=== PATIENT | male | born 1955 | race Caucasian/White ===

== ENCOUNTER 2024-03-13 21:49 | Inpatient (IN) | payer MEDICARE, SELFPAY ==
[2024-03-13 22:02] VITALS: BP 116/73; BP 125/76; PULSE 100; PULSE 98; RESP 18; TEMP 36.7; O2SAT 95; BMI 24.6
--- NOTE | 2024-03-13 22:19 | PC.NURSE ---
addendum client has not taken meds for days, states he eats at least one thing a day. recent consistent use of etoh but seemingly not dependent. used to enjoy woodworking and now losing interest in joyful activities. drank etoh today reportedly last at 1530. denies hallucinations contracts for safety. reports si thought no intent or plan. turn car into oncoming traffic- i never would though too chicken
--- NOTE | 2024-03-13 22:22 | PC.NURSE ---
reports recent cigarette smoking im no t supposed to , declines NRT
--- NOTE | 2024-03-13 22:23 | ECG_ITS ---
Test Reason : HX AFIB Blood Pressure : / mmHG Vent. Rate : 093 BPM Atrial Rate : 093 BPM P-R Int : 210 ms QRS Dur : 094 ms QT Int : 376 ms P-R-T Axes : 090 031 045 degrees QTc Int : 467 ms Sinus rhythm with 1st degree A-V block with occasional Premature ventricular complexes Low voltage QRS Borderline ECG No previous ECGs available Referred By: Cari Vergara Electronically Signed By:Heath Arellano
[2024-03-13 22:44] LABS: Amphetamine Screen Urine Not Detected (Not Detect); Appearance Urine Clear; Barbiturates, Urine Not Detected (Not Detect); Benzodiazepines Screen Urine Not Detected (Not Detect); Buprenorphine Scr Not Detected (Not Detect); Cannabinoid Screen Urine Not Detected (Not Detect); Cocaine Screen Urine Not Detected (Not Detect); Color Urine Yellow; Fentanyl, urine Not Detected (Not Detect); Glucose Urine UA Negative (Negative); Leukocyte Esterase Urine Negative (Negative); Methadone Screen, Urine Not Detected (Not Detect); Nitrite Urine Negative (Negative); Opiate Screen Urine Not Detected (Not Detect); Oxycodone Screen Urine Not Detected (Not Detect); Phencyclidine Screen Urine Not Detected (Not Detect); Specific Gravity - Urine <= 1.005 (1.005-1.025); Urine Blood Negative (Negative); Urine Ketones Trace mg/dL (Negative); Urine Protein Negative (Neg-Trace)
[2024-03-13 22:49] LABS: Bacteria Urine None Seen (None Seen); Hyaline Casts Urine 0-2 /LPF (0-2); RBC Urine 0-2 /HPF (0-2); Squamous Epithelial Cell Urine 0-2 /HPF (0-2); WBC Urine 0-5 /HPF (0-5)
[2024-03-13 22:53] LABS: MANUAL DIFF FLAG NO
[2024-03-13 22:55] LABS: Basophils Absolute Auto 0.1 X10*3/uL (0.0-0.2); Basophils Percent Auto 0.7 % (0-2); Eosinophils Absolute Auto 0.3 X10*3/uL (0.0-0.4); Eosinophils Percent Auto 3.7 % (0-4); Hematocrit 37.9 % (42.0-52.0); Hemoglobin 13.1 g/dl (14.0-18.0); Imm Gran Abs Auto 0.02 X10*3/uL (0.00-0.03); Imm Gran Pct Auto 0.3 % (0.0-0.4); Lymphocytes Absolute Auto 2.3 X10*3/uL (1.2-4.9); Mean Corpuscular HGB Conc 34.6 g/dl (31.0-36.0); Mean Corpuscular Hemoglobin 34.9 pg (27.0-33.0); Mean Corpuscular Volume 101.1 fL (80.0-98.0); Mean Platelet Volume 8.5 fL (9.4-12.4); Monocytes Absolute Auto 0.7 X10*3/uL (0.1-1.2); Monocytes Percent Auto 10.8 % (2-11); Neutrophils Absolute Auto 3.4 x10*3/uL (2.0-8.3); Neutrophils Percent Auto 50.5 % (45-73); Platelet Count 134 X10*3/uL (160-400); Red Blood Count 3.75 X10*6/uL (4.60-5.80); Red Cell Distribution Width 13.2 % (11.0-16.0); White Blood Count 6.8 X10*3/uL (4.8-10.8)
[2024-03-13 23:11] LABS: Alanine Aminotransferase 28 U/L (0-40); Albumin Level 3.5 g/dL (3.5-5.0); Alkaline Phosphatase 83 U/L (39-117); Anion Gap 18 (12-20); Aspartate Amino Transferase 38 U/L (5-37); Bilirubin Total 0.5 mg/dL (0.0-1.0); Blood Urea Nitrogen 5 mg/dL (9-16); Calcium 8.8 mg/dL (8.4-10.2); Carbon Dioxide 20 mmol/L (22-29); Chloride 105 mmol/L (96-108); Creatinine Clr Calc Pharmacy 93.6; Estimated Glomerular Filt Rate > 60; Ethanol 99 mg/dL; Glucose Random 84 mg/dL (60-115); Sodium 139 mmol/L (135-145); Total Protein 6.4 g/dL (6.5-8.0)
--- NOTE | 2024-03-13 23:19 | ED.PSYCH ---
HPI - Psych General Chief Complaint: Psychiatric Symptoms Stated Complaint: Severe depression Time Seen by Provider: 03/13/24 22:22 Source: patient Mode of arrival: EMS History of Present Illness ED Provider: Dr. Vergara HPI Narrative: 68-year-old male with a history of atrial fibrillation and on chronic anticoagulation, depression, COPD who states that over the past week he has been having swings of anger and then being sad and tearful and states that he has never had these before and is unsure of why these have all the sudden started, he also endorses daily drinking of 3-4 alcoholic beverages. Patient states he has not supposed to be smoking but has been over the past 2 weeks and states that he has not taken any of his medication for the past 1 week. He denies any fever/chills/shortness of breath or chest pain and denies any recent blurred vision/double vision/speech issues or difficulty with walking or sensation. Related Data Home Medications ?Medication ?Instructions ?Recorded ?Confirmed albuterol sulfate 90 mcg/actuation 2 puff inhalation Q4H PRN wheezing 03/13/24 03/13/24 aerosol inhaler apixaban 5 mg tablet (Eliquis) 5 mg PO BID 03/13/24 03/13/24 atorvastatin 40 mg tablet 40 mg PO DAILY 03/13/24 03/13/24 cyanocobalamin (vitamin B-12) 1,000 mcg PO DAILY 03/13/24 03/13/24 1,000 mcg tablet folic acid 1 mg tablet 1 mg PO DAILY 03/13/24 03/13/24 losartan 25 mg tablet 12.5 mg PO DAILY 03/13/24 03/13/24 sertraline 100 mg tablet 100 mg PO DAILY 03/13/24 03/13/24 Allergies Allergy/AdvReac Type Severity Reaction Status Date / Time No Known Allergies Allergy Unverified 03/13/24 22:05 [No Known Allergies*] Review of Systems Review of Systems: Pertinent positives and negatives as stated in HPI PMFSH Past Medical History Source: nursing notes reviewed Social History Social History Advance Directives: No Advance Directives Information Provided: No Do you have a plan to hurt others: No Plan Physical Exam Vital Signs: Vital Signs: Last Vital Signs Temp 98.1 F 03/13/24 22:02 Pulse 100 03/13/24 22:02 Resp 18 03/13/24 22:02 BP 116/73 03/13/24 22:02 Pulse Ox 95 03/13/24 22:02 O2 Del Method Room Air 03/13/24 22:02 BMI result Body Mass Index 24.6 VITAL SIGNS: Reviewed. GENERAL: Well developed, well nourished, in no acute distress. HEAD: Normocephalic/atraumatic EYES: PERRLA, EOMI EARS: Ext canals without abnormality NOSE: Nares patent bilateral OROPHARYNX: no oral lesions noted, posterior pharynx clear NECK: Supple, no adenopathy LUNGS: Normal breath sounds. No adventitious sounds or accessory muscle use. SpO2<95> CARDIOVASCULAR: Regular rate and rhythm without noted murmurs ABDOMEN: Soft, non-tender, non-distended with bowel sounds. MUSCULOSKELETAL: No tenderness, deformities, or effusions noted on gross inspection. EXTREMITIES: No cyanosis, clubbing or edema. SKIN: Inspection of the skin reveals no rashes NEUROLOGIC: Alert and oriented x 4. Strength and sensation to light touch were grossly intact x 4, cranial nerves 2-12 are grossly intact. Medical Decision Making Medical Decision Making MDM Narrative: 68-year-old male with history and clinical presentation, DDX: Acute exacerbation of underlying chronic depression, also use alcohol, denies any recent anniversaries of losses or stressors in life. I reviewed all investigations and hematologic indices negative for leukocytosis and patient has a macrocytic anemia without any history or clinical findings to suggest acute bleeding and likely secondary to anemia of chronic disease, patient also demonstrates with a thrombocytopenia that is likely secondary to chronic use of alcohol. Chemistry indices are negative for JOSE ALFREDO or electrolyte/liver enzyme derangements. Urinalysis is negative for UTI or hematuria. UDS is negative and ETOH-99 consistent with patient's endorsement of alcohol use this evening. Patient is otherwise medically cleared for further evaluation by the crisis team. Patient placed in physician observation because the patient needed more time for crisis evaluation. At the time observation was started the patient's vital signs were stable, patient is alert and oriented, neuro: Nonfocal, CV RRR, lungs clear Differential Diagnosis Differential Diagnoses: The differential diagnosis associated with the presentation includes Please see the discussion above Admission/Observation Consideration of admission/observation: Escalation of care including admission/observation considered Please see the discussion above Consult Healthcare Provider Management of the patient was discussed with: Biazzi Nitrator Operator Please see the discussion above Lab Data MDM Lab Attestation statement: I reviewed the patient's lab results. Please see the discussion above 03/13/24 22:50 03/13/24 22:50 Labs: Lab Results 03/13/24 03/13/24 Range/Units 22:50 Unknown WBC 6.8 (4.8-10.8) X10*3/uL RBC 3.75 L (4.60-5.80) X10*6/uL Hgb 13.1 L (14.0-18.0) g/dl Hct 37.9 L (42.0-52.0) % MCV 101.1 H (80.0-98.0) fL MCH 34.9 H (27.0-33.0) pg MCHC 34.6 (31.0-36.0) g/dl RDW 13.2 (11.0-16.0) % Plt Count 134 L (160-400) X10*3/uL MPV 8.5 L (9.4-12.4) fL Immature Gran % (Auto) 0.3 (0.0-0.4) % Neut % (Auto) 50.5 (45-73) % Lymph % (Auto) 34.0 (20-40) % [place] % (Auto) 10.8 (2-11) % Eos % (Auto) 3.7 (0-4) % Baso % (Auto) 0.7 (0-2) % Lymph # (Auto) 2.3 (1.2-4.9) X10*3/uL [place] # (Auto) 0.7 (0.1-1.2) X10*3/uL Eos # (Auto) 0.3 (0.0-0.4) X10*3/uL Baso # (Auto) 0.1 (0.0-0.2) X10*3/uL Abs Immat Gran (auto) 0.02 (0.00-0.03) X10*3/uL Absolute Neuts (auto) 3.4 (2.0-8.3) x10*3/uL Absolute Nucleated RBC 0.000 (0.0-0.012) X10*3/uL Nucleated RBC % (auto) 0.0 (0.0-0.2) /100WBC Sodium 139 (135-145) mmol/L Potassium 4.0 (3.3-5.1) mmol/L Chloride 105 (96-108) mmol/L Carbon Dioxide 20 L (22-29) mmol/L Anion Gap 18 (12-20) BUN 5 L (9-16) mg/dL Creatinine 0.72 (0.5-1.4) mg/dL Estim Creat Clear Calc 93.6 Estimated GFR > 60 Random Glucose 84 (60-115) mg/dL Calcium 8.8 (8.4-10.2) mg/dL Total Bilirubin 0.5 (0.0-1.0) mg/dL AST 38 H (5-37) U/L ALT 28 (0-40) U/L Alkaline Phosphatase 83 (39-117) U/L Total Protein 6.4 L (6.5-8.0) g/dL Albumin 3.5 (3.5-5.0) g/dL Urine Color Yellow Urine Appearance Clear Urine pH 6.0 (5.0-9.0) Ur Specific [place] <= 1.005 (1.005-1.025) Urine Protein Negative (Neg-Trace) mg/dL Urine Glucose (UA) Negative (Negative) mg/dL Urine Ketones Trace (Negative) mg/dL Urine Blood Negative (Negative) Urine Nitrite Negative (Negative) Ur Leukocyte Esterase Negative (Negative) Urine RBC 0-2 (0-2) /HPF Urine WBC 0-5 (0-5) /HPF Ur Squamous Epith Cells 0-2 (0-2) /HPF Urine Bacteria None Seen (None Seen) Hyaline Casts 0-2 (0-2) /LPF Urine Opiates Screen Not Detected (Not Detect) Ur Buprenorphine Scrn Not Detected (Not Detect) ng/mL Ur Oxycodone Screen Not Detected (Not Detect) ng/mL Urine Methadone Screen Not Detected (Not Detect) ng/mL Urine Fentanyl Screen Not Detected (Not Detect) Ur Barbiturates Screen Not Detected (Not Detect) Ur Phencyclidine Scrn Not Detected (Not Detect) Ur Amphetamines Screen Not Detected (Not Detect) U Benzodiazepines Scrn Not Detected (Not Detect) Urine Cocaine Screen Not Detected (Not Detect) U Marijuana (THC) Screen Not Detected (Not Detect) Ethyl Alcohol 99 mg/dL Independent Interpretation I performed an independent interpretation of an: EKG Interpretation: Sinus rhythm, first-degree AV block, HR-93, no STEMI, MN-to 10, QRS and QTC are within normal limits. Chronic Conditions COPD, AFib, chronic anticoagulation. Critical Care Time Critical Care Time Critical Care Time: Yes Total Critical Care Time: 45 Attestation: I personally attest to this time spent taking care of the patient. Discharge Plan Discharge Clinical Impression: Severe depression Patient Disposition: Still a Patient Prescriptions: No Action atorvastatin 40 mg tablet 40 mg PO DAILY sertraline 100 mg tablet 100 mg PO DAILY cyanocobalamin (vitamin B-12) 1,000 mcg tablet 1,000 mcg PO DAILY losartan 25 mg tablet 12.5 mg PO DAILY folic acid 1 mg tablet 1 mg PO DAILY albuterol sulfate 90 mcg/actuation HFA aerosol inhaler 2 puff inhalation Q4H PRN (Reason: wheezing) Eliquis 5 mg tablet 5 mg PO BID Print Language: Amharic
[2024-03-13] MEDS: hydrOXYzine HCL 25 MG TABLET PO (23:38)
[2024-03-13] MEDS: Apixaban 5 MG TABLET PO (23:38)
[2024-03-13 23:42] LABS: INTERNATIONAL NORM RATIO 0.8 (0.9-1.1); Prothrombin Time 10.3 SEC (11.1-13.3)
[2024-03-14] VITALS: BP 107/66; PULSE 83; RESP 17; TEMP 36.4; O2SAT 90
--- NOTE | 2024-03-14 06:56 | PC.NURSE ---
Assumed care of patient at 0645. Patient is observed resting in his bed. No signs of distress, breathing is even and unlabored. Will continue plan of care.
[2024-03-14 07:58] VITALS: BP 151/91; PULSE 107; RESP 16; TEMP 36.7; O2SAT 91
[2024-03-14] MEDS: Atorvastatin Calcium 40 MG TABLET PO (08:23)
[2024-03-14] MEDS: Sertraline HCL 100 MG TABLET PO (08:23)
[2024-03-14] MEDS: Apixaban 5 MG TABLET PO ×2 (08:23→20:36)
[2024-03-14] MEDS: Folic Acid 1 MG TABLET PO (08:23)
[2024-03-14] MEDS: Losartan Potassium 25 MG TABLET 12.5 MG PO (08:24)
[2024-03-14] MEDS: Cyanocobalamin (Vitamin B-12) 1,000 MCG TABLET 1000 MCG PO (08:24)
[2024-03-14] MEDS: Albuterol Sulfate 90 MCG 8 GM INHALER 2 PUFF INHALE (11:13)
[2024-03-14 11:30] VITALS: BP 105/65; PULSE 100; RESP 20; TEMP 37.1; O2SAT 91
--- NOTE | 2024-03-14 13:54 | PC.ADMIT ---
Shayan Calvillo, a 68 y/o male, was admitted to at 1130 from [facility] on a CV for treatment of unspecified depression and alcohol use disorder. The patient reportedly presented at [facility] yesterday, 03/13/24, after feeling increasingly depressed and having passive suicidal ideation. The patient is alert and oriented x 4. Upon admission he was pleasant and engaging and made good eye contact. Pt was able to recall events precipitating admission and vocalize his mental status. Per patient, he has been experiencing increased depression and anxiety due to being retired and feeling bored and hopeless. ?Some days I?m just angry and others I can?t stop crying.? The patient also stated that his previous marriage, which ended in 2002, continues to wear on him and cause ongoing sadness. ?Wednesday was one of my crying days and I turned to my brother and said I need to go to the hospital.? Patient was previously evaluated by [facility] crisis and his outpatient provider in recent days for reports of depression as well. Pt thought process was linear and organized. He denied perceptual disturbances, as well as current SI/HI. ?I?d never actually kill myself but I feel like giving up a lot.? Pt reported drinking three 20oz beers per day, but denied a history of alcohol withdrawal. CIWA Q4 is currently in place. CIWA score at admission was a 2 and patient denied s/sx of active withdrawal. Pt is a former everyday smoker who quit several years ago, but he still has a ?few cigarettes per week.? Pt denied the use of other substances. Physically, patient reported that he has experienced weight loss in the last several months in excess of 20lbs. He attributed this to not eating well and feelings of nausea, which he reportedly gets frequently. The patient also has a history of A-fib, emphysema, and high cholesterol. He does not use supplemental oxygen, but reports his Sa02 drops with exertion and usually reads in the low 90?s. During skin check, patient was observed to have bruising/discoloration to his arms bilaterally. ?If i look at a wall I bruise.? No open sores or wounds reported or observed. Pt ambulates independently but has a reported history of falls with his last fall occurring in September,, per patient report. However, patient gait is steady at this time and he ambulates without an assistive device. Pt placed on 15 minute checks for safety.?
[2024-03-14 13:58] VITALS: BMI 23.4
[2024-03-14 20:00] VITALS: BP 117/62; PULSE 94; RESP 16; TEMP 36.6; O2SAT 94
[2024-03-14] MEDS: hydrOXYzine HCL 25 MG TABLET PO (20:36)
[2024-03-14] MEDS: traZODone HCL 50 MG TABLET PO (21:01)
[2024-03-15 08:44] LABS: Estimated Average Glucose 100 mg/dL; Hemoglobin A1c % 5.1 % (<6.0)
[2024-03-15 08:50] LABS: Alanine Aminotransferase 22 U/L (0-40); Albumin Level 2.9 g/dL (3.5-5.0); Alkaline Phosphatase 70 U/L (39-117); Anion Gap 13 (12-20); Aspartate Amino Transferase 28 U/L (5-37); Bilirubin Total 0.5 mg/dL (0.0-1.0); Blood Urea Nitrogen 7 mg/dL (9-16); Calcium 8.6 mg/dL (8.4-10.2); Carbon Dioxide 25 mmol/L (22-29); Chloride 106 mmol/L (96-108); Cholesterol 115 mg/dL (<200); Creatinine Clr Calc Pharmacy 88.7; Estimated Glomerular Filt Rate > 60; Glucose Fasting 98 mg/dL (60-99); HDL Cholesterol 69 mg/dL (>40); LDL Cholesterol Calculated 35 mg/dL (<100); Magnesium 1.8 mg/dL (1.6-2.6); Potassium 3.6 mmol/L (3.3-5.1); Sodium 140 mmol/L (135-145); Total Protein 5.4 g/dL (6.5-8.0); Triglycerides 56 mg/dL (<150)
[2024-03-15 08:58] VITALS: BP 103/64; PULSE 97; RESP 20; TEMP 36.6; O2SAT 91
[2024-03-15] MEDS: Cyanocobalamin (Vitamin B-12) 1,000 MCG TABLET 1000 MCG PO (09:02)
[2024-03-15] MEDS: Folic Acid 1 MG TABLET PO (09:02)
[2024-03-15] MEDS: Sertraline HCL 100 MG TABLET PO (09:02)
[2024-03-15] MEDS: Losartan Potassium 25 MG TABLET 12.5 MG PO (09:02)
[2024-03-15] MEDS: Apixaban 5 MG TABLET PO ×2 (09:02→20:56)
[2024-03-15] MEDS: Atorvastatin Calcium 40 MG TABLET PO (09:03)
[2024-03-15 09:08] LABS: Free T4 (Free Thyroxine) 0.91 ng/dL (0.71-1.85); Thyroid Stimulating Hormone 2.12 uIU/mL (0.32-4.0)
[2024-03-15 09:14] LABS: Folate 10.1 ng/mL (> or = 4.0); Vitamin B12 817 pg/mL (200-900)
[2024-03-15] MEDS: Albuterol Sulfate 90 MCG 8 GM INHALER 2 PUFF INHALE (09:45)
--- NOTE | 2024-03-15 11:51 | MHC.CLN ---
NUTRITION CONSULT FOR PATIENT REPORTS 20# WEIGHT LOSS X SEVERAL MONTHS. NO PRIOR WEIGHTS VIEWED. REVIEW OF EMR SHOWS PATIENT ATTRIBUTES WEIGHT LOSS TO NOT EATING WELL AND NAUSEA. DEPRESSION AND ETOH USE LIKELY CONTRIBUTORS TO DECREASED APPETITE. ADDING ENSURE BID TO PROMOTE NUTRITIONAL INTAKE. PROVIDES 700 KCALS, 40 G PROTEIN. ENCOURAGE PO INTAKE AT MEALS AND SNACKS ON UNIT.
--- NOTE | 2024-03-15 13:07 | PM.EVENT ---
Event Note Date of Service: 03/15/24 Event Note: 68 year old male with pertinent history of gout and alcohol use disorder admitted to adult psychiatry with consult placed to hospitalist service for evaluation of possible gout. The patient reports started with a dull pain along the medial aspect of the rihgt foot at the base of the 1st metatarsal yesterday. Since then it has become swollen, red, and hot with worsening pain. he stated this location and symptoms are consistent with prior episodes of gout. We did check uric acid level which is normal at 4.2. However on exam there is a localized area of swelling, warmth, and erythema over the above mentioned area, clinically appearing consistent with gout. He is afebrile and there is no leukocytosis to suggest infection. Reports historically has taken prednisone for gout with good effect. Given patient's known history of gout and history of heavy alcohol consumption serving as a significant risk factor, will treat the patient for acute gout flare with prednisone taper as ordered. Thank you for allowing me to participate in this consult. Signing off at this time. Please do not hesitate to call for further questions or for any acute medical issues. Time Spent With Patient Time: Total time managing care of this patient today ____ minutes.
[2024-03-15 13:52] LABS: MANUAL DIFF FLAG NO
--- NOTE | 2024-03-15 13:52 | MHC.RECOVRN ---
AUDIT-C Brief Intervention Pt had positive screen for unhealthy alcohol use on admission. Pt declined to meet with [facility] to discuss alcohol use and resources.
[2024-03-15 13:54] LABS: Basophils Percent Auto 0.5 % (0-2); Eosinophils Absolute Auto 0.2 X10*3/uL (0.0-0.4); Eosinophils Percent Auto 2.1 % (0-4); Hematocrit 40.5 % (42.0-52.0); Hemoglobin 13.6 g/dl (14.0-18.0); Imm Gran Abs Auto 0.02 X10*3/uL (0.00-0.03); Imm Gran Pct Auto 0.2 % (0.0-0.4); Lymphocytes Absolute Auto 1.7 X10*3/uL (1.2-4.9); Lymphocytes Percent Auto 21.3 % (20-40); Mean Corpuscular HGB Conc 33.6 g/dl (31.0-36.0); Mean Corpuscular Hemoglobin 34.2 pg (27.0-33.0); Mean Corpuscular Volume 101.8 fL (80.0-98.0); Mean Platelet Volume 8.8 fL (9.4-12.4); Monocytes Percent Auto 12.3 % (2-11); Neutrophils Absolute Auto 5.1 x10*3/uL (2.0-8.3); Neutrophils Percent Auto 63.6 % (45-73); Platelet Count 140 X10*3/uL (160-400); Red Blood Count 3.98 X10*6/uL (4.60-5.80); Red Cell Distribution Width 13.2 % (11.0-16.0)
[2024-03-15 14:07] LABS: Uric Acid 4.2 mg/dL (3.4-7.0)
--- NOTE | 2024-03-15 14:36 | P.HPPS_ITS ---
HPI Date of Service: 03/15/24 Chief Complaint: Severe depression HPI Narrative: per [facility] crisis eval, pt called emergency number and police brought pt to [facility] offices. per [facility] eval, pt c/o depression with SI, but said, i could never do it. he was weepy and indicated he needed help but was unable to elucidate exactly what kind. he identified several psychosocial stressors: detention, or not knowing what to do with himself anymore; worsening health conditions; continuing to be preoccupied with his divorce of 20 years ago. he reported alcohol abuse as a current coping strategy, drinking 75 oz of beer between 3-6 and then going to sleep. he reportedly has not taken his medications for the past week as well. on interview with MD, pt is calm and cooperative. he denies any ROWE, sweats, tremors, n/v/d. he does report anxiety. per [employer]oc aadc operations staff officer, scored 1 and 0 overnight on CIWA. complete history is taken, next steps discussed. pt looking for anti- depressant augmentation - he has been taking sertaline 100 mg daily for quite some time. R/B of wellbutrin discussed, including Sz, and pt agrees to trial. will start 150 mg daily as of tomorrow. discussion held re MAT for AUD, pt declines any such approach, saying he tried it long ago and all it did was remind him that he wasn't drinking and made him crave even more. also c/o right ankle pain, reporting h/o gout, saying the present pain seems to be the same. MD agreed to hospitalist consult for presumed gout. pt is interested in getting back into mental health treatment and is eager for referrals for therapy and psychiatry. 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 2 adult sons, one from whom he is estranged. of 29 years him in the early 1999s. close with his brother, with whom he lives. Substance History: tobacco - denies use aside from lapse the past couple of weeks. alcohol - daily 72 oz beer until day of admission. h/o detox and rehab. cannabis - denies denies the use of other drugs or recreational substances. Trauma History: denies Diagnostics Vital Signs (24Hr): Vital Signs - 24 hr 03/14/24 20:00 03/15/24 08:58 Temperature 97.9 F 97.9 F Pulse Rate 94 97 Respiratory Rate 16 20 Blood Pressure 117/62 103/64 Pulse Oximetry 94 91 L Oxygen Delivery Method Room Air Room Air BMI result Body Mass Index 23.4 Labs 03/15/24 13:44 03/15/24 08:01 Labs: Laboratory Results - last 48 hr 03/13/24 03/13/24 03/13/24 22:50 23:26 Unknown WBC 6.8 RBC 3.75 L Hgb 13.1 L Hct 37.9 L MCV 101.1 H MCH 34.9 H MCHC 34.6 RDW 13.2 Plt Count 134 L MPV 8.5 L Immature Gran % (Auto) 0.3 Neut % (Auto) 50.5 Lymph % (Auto) 34.0 [place] % (Auto) 10.8 Eos % (Auto) 3.7 Baso % (Auto) 0.7 Lymph # (Auto) 2.3 [place] # (Auto) 0.7 Eos # (Auto) 0.3 Baso # (Auto) 0.1 Abs Immat Gran (auto) 0.02 Absolute Neuts (auto) 3.4 Absolute Nucleated RBC 0.000 Nucleated RBC % (auto) 0.0 PT 10.3 L INR 0.8 L Sodium 139 Potassium 4.0 Chloride 105 Carbon Dioxide 20 L Anion Gap 18 BUN 5 L Creatinine 0.72 Estim Creat Clear Calc 93.6 Estimated GFR > 60 Random Glucose 84 Fasting Glucose Estimat Average Glucose Hemoglobin A1c % Uric Acid Calcium 8.8 Magnesium Total Bilirubin 0.5 AST 38 H ALT 28 Alkaline Phosphatase 83 Total Protein 6.4 L Albumin 3.5 Triglycerides Cholesterol LDL Cholesterol, Calc HDL Cholesterol Vitamin B12 Folate TSH Free T4 Urine Color Yellow Urine Appearance Clear Urine pH 6.0 Ur Specific [place] <= 1.005 Urine Protein Negative Urine Glucose (UA) Negative Urine Ketones Trace Urine Blood Negative Urine Nitrite Negative Ur Leukocyte Esterase Negative Urine RBC 0-2 Urine WBC 0-5 Ur Squamous Epith Cells 0-2 Urine Bacteria None Seen Hyaline Casts 0-2 Urine Opiates Screen Not Detected Ur Buprenorphine Scrn Not Detected Ur Oxycodone Screen Not Detected Urine Methadone Screen Not Detected Urine Fentanyl Screen Not Detected Ur Barbiturates Screen Not Detected Ur Phencyclidine Scrn Not Detected Ur Amphetamines Screen Not Detected U Benzodiazepines Scrn Not Detected Urine Cocaine Screen Not Detected U Marijuana (THC) Screen Not Detected Ethyl Alcohol 99 03/15/24 03/15/24 08:01 13:44 WBC 8.0 RBC 3.98 L Hgb 13.6 L Hct 40.5 L MCV 101.8 H MCH 34.2 H MCHC 33.6 RDW 13.2 Plt Count 140 L MPV 8.8 L Immature Gran % (Auto) 0.2 Neut % (Auto) 63.6 Lymph % (Auto) 21.3 [place] % (Auto) 12.3 H Eos % (Auto) 2.1 Baso % (Auto) 0.5 Lymph # (Auto) 1.7 [place] # (Auto) 1.0 Eos # (Auto) 0.2 Baso # (Auto) 0.0 Abs Immat Gran (auto) 0.02 Absolute Neuts (auto) 5.1 Absolute Nucleated RBC 0.000 Nucleated RBC % (auto) 0.0 PT INR Sodium 140 Potassium 3.6 Chloride 106 Carbon Dioxide 25 Anion Gap 13 BUN 7 L Creatinine 0.76 Estim Creat Clear Calc 88.7 Estimated GFR > 60 Random Glucose Fasting Glucose 98 Estimat Average Glucose 100 Hemoglobin A1c % 5.1 Uric Acid 4.2 Calcium 8.6 Magnesium 1.8 Total Bilirubin 0.5 AST 28 ALT 22 Alkaline Phosphatase 70 Total Protein 5.4 L Albumin 2.9 L Triglycerides 56 Cholesterol 115 LDL Cholesterol, Calc 35 HDL Cholesterol 69 Vitamin B12 817 Folate 10.1 TSH 2.12 Free T4 0.91 Urine Color Urine Appearance Urine pH Ur Specific [place] Urine Protein Urine Glucose (UA) Urine Ketones Urine Blood Urine Nitrite Ur Leukocyte Esterase Urine RBC Urine WBC Ur Squamous Epith Cells Urine Bacteria Hyaline Casts Urine Opiates Screen Ur Buprenorphine Scrn Ur Oxycodone Screen Urine Methadone Screen Urine Fentanyl Screen Ur Barbiturates Screen Ur Phencyclidine Scrn Ur Amphetamines Screen U Benzodiazepines Scrn Urine Cocaine Screen U Marijuana (THC) Screen Ethyl Alcohol Meds/Allergies Meds Home Medications ?Medication ?Instructions ?Recorded ?Confirmed ?Type albuterol sulfate 90 mcg/actuation 2 puff inhalation Q4H PRN wheezing 03/13/24 03/13/24 History aerosol inhaler apixaban 5 mg tablet (Eliquis) 5 mg PO BID 03/13/24 03/13/24 History atorvastatin 40 mg tablet 40 mg PO DAILY 03/13/24 03/13/24 History cyanocobalamin (vitamin B-12) 1,000 mcg PO DAILY 03/13/24 03/13/24 History 1,000 mcg tablet folic acid 1 mg tablet 1 mg PO DAILY 03/13/24 03/13/24 History losartan 25 mg tablet 12.5 mg PO DAILY 03/13/24 03/13/24 History sertraline 100 mg tablet 100 mg PO DAILY 03/13/24 03/13/24 History Allergies Allergies Allergy/AdvReac Type Severity Reaction Status Date / Time No Known Allergies Allergy Unverified 03/13/24 22:05 [No Known Allergies*] Mental Status Exam Mental Status Exam Narrative: dressed in rich, adequately groomed. cooperative, no PMA/PMR. speech nml rate, amount, loudness, latency. flattened tone. thoughts linear and logical. affect constricted, normo-intense, non-labile. mood good. denies SI/SIBI/HI/AVH. Assessment & Plan Assessment & Plan (1) Severe depression: Status: Acute Code(s): F32.2 - Major depressive disorder, single episode, severe without psychotic features (2) Alcohol use disorder: Status: Acute Code(s): F10.90 - Alcohol use, unspecified, uncomplicated Plan add wellbutrin 150 mg daily to sertraline 100 mg daily for depression. continue CIWA with ativan per protocol for alcohol withdrawal. declines MAT for AUD. medical consult for reported gout flare. Patient educated on: medication risk/benefits and substance abuse Reason for continued inpatient stay Substantial Risk for: inability to function and rapid decompensation Statement Statement: I have reviewed the history and physical and performed a pertinent examination on my patient. No changes have occurred unless specified. If the History and Physical was not performed prior to admission, the Hospitalist's service will be consulted for completing the admission physical. Time Spent With Patient Time: Total time managing care of this patient today __55__ minutes.
[2024-03-15] MEDS: predniSONE 20 MG TABLET 30 MG PO (15:30)
[2024-03-15 20:15] VITALS: BP 107/76; PULSE 94; RESP 16; TEMP 36.9; O2SAT 96
[2024-03-15] MEDS: hydrOXYzine HCL 25 MG TABLET PO (20:55)
[2024-03-15] MEDS: traZODone HCL 50 MG TABLET PO (20:56)
[2024-03-16 08:06] VITALS: BP 93/62; PULSE 81; RESP 20; TEMP 36.6; O2SAT 94
[2024-03-16] MEDS: Apixaban 5 MG TABLET PO ×2 (08:21→20:43)
[2024-03-16] MEDS: predniSONE 20 MG TABLET 30 MG PO (08:21)
[2024-03-16] MEDS: Atorvastatin Calcium 40 MG TABLET PO (08:21)
[2024-03-16] MEDS: Sertraline HCL 100 MG TABLET PO (08:21)
[2024-03-16 08:22] VITALS: BP 93/63
[2024-03-16] MEDS: Losartan Potassium 25 MG TABLET 12.5 MG PO (08:22)
[2024-03-16] MEDS: buPROPion HCl XL 150 MG TAB.ER.24H PO (08:22)
[2024-03-16] MEDS: Cyanocobalamin (Vitamin B-12) 1,000 MCG TABLET 1000 MCG PO (08:22)
[2024-03-16] MEDS: Folic Acid 1 MG TABLET PO (08:23)
--- NOTE | 2024-03-16 13:33 | P.PNPSI_ITS ---
Subjective Subjective Date of Service: 03/16/24 Reason For Visit: Severe depression Interim History: calm, cooperative. reports ankle pain has resolved, can now walk normally. per staff, not scoring on CIWA. seen by medicine for gout. dep/anx improved. no SI. slept about 8 hours. Mental Status Exam Mental Status Exam Narrative: dressed in rich, adequately groomed. cooperative, no PMA/PMR. speech nml rate, amount, loudness, latency. flattened tone. thoughts linear and logical. affect constricted, normo-intense, non-labile. mood good. denies SI/SIBI/HI/AVH. Diagnostics Vital Signs (24Hr): Vital Signs - 24 hr 03/15/24 20:15 03/16/24 08:06 03/16/24 08:22 Temperature 98.4 F 97.9 F Pulse Rate 94 81 Respiratory Rate 16 20 Blood Pressure 107/76 93/62 93/63 Pulse Oximetry 96 94 Oxygen Delivery Method Room Air Room Air BMI result Body Mass Index 23.4 Labs 03/15/24 13:44 03/15/24 08:01 Labs: Laboratory Results - last 48 hr 03/15/24 03/15/24 08:01 13:44 WBC 8.0 RBC 3.98 L Hgb 13.6 L Hct 40.5 L MCV 101.8 H MCH 34.2 H MCHC 33.6 RDW 13.2 Plt Count 140 L MPV 8.8 L Immature Gran % (Auto) 0.2 Neut % (Auto) 63.6 Lymph % (Auto) 21.3 [place] % (Auto) 12.3 H Eos % (Auto) 2.1 Baso % (Auto) 0.5 Lymph # (Auto) 1.7 [place] # (Auto) 1.0 Eos # (Auto) 0.2 Baso # (Auto) 0.0 Abs Immat Gran (auto) 0.02 Absolute Neuts (auto) 5.1 Absolute Nucleated RBC 0.000 Nucleated RBC % (auto) 0.0 Sodium 140 Potassium 3.6 Chloride 106 Carbon Dioxide 25 Anion Gap 13 BUN 7 L Creatinine 0.76 Estim Creat Clear Calc 88.7 Estimated GFR > 60 Fasting Glucose 98 Estimat Average Glucose 100 Hemoglobin A1c % 5.1 Uric Acid 4.2 Calcium 8.6 Magnesium 1.8 Total Bilirubin 0.5 AST 28 ALT 22 Alkaline Phosphatase 70 Total Protein 5.4 L Albumin 2.9 L Triglycerides 56 Cholesterol 115 LDL Cholesterol, Calc 35 HDL Cholesterol 69 Vitamin B12 817 Folate 10.1 TSH 2.12 Free T4 0.91 Medications Medications Current Medications Acetaminophen (Acetaminophen 325 Mg Tablet) 650 mg PO Q6H PRN PRN Reason: Headache/Pain Mild Scale (1-3) Al Hydroxide/Mg Hydroxide (Magnesium Hydrox/Alum Hydrox 30 Ml Oral.Susp) 30 ml PO Q6H PRN PRN Reason: Heartburn/Nausea Albuterol Sulfate (Albuterol Sulfate 90 Mcg 8 Gm Inhaler) 2 puff INHALE Q4H PRN PRN Reason: wheezing Last Admin: 03/15/24 09:45 Dose: 2 puff Apixaban (Apixaban 5 Mg Tablet) 5 mg PO BID [facility] Last Admin: 03/16/24 08:21 Dose: 5 mg Atorvastatin Calcium (Atorvastatin Calcium 40 Mg Tablet) 40 mg PO DAILY [facility] Last Admin: 03/16/24 08:21 Dose: 40 mg Bupropion HCl (Bupropion Hcl Xl 150 Mg Tab.Er.24h) 150 mg PO DAILY [facility] Last Admin: 03/16/24 08:22 Dose: 150 mg Cyanocobalamin (Cyanocobalamin (Vitamin B-12) 1,000 Mcg Tablet) 1,000 mcg PO DAILY [facility] Last Admin: 03/16/24 08:22 Dose: 1,000 mcg Folic Acid (Folic Acid 1 Mg Tablet) 1 mg PO DAILY [facility] Last Admin: 03/16/24 08:23 Dose: 1 mg Hydroxyzine HCl (Hydroxyzine Hcl 25 Mg Tablet) 25 mg PO Q6H PRN PRN Reason: Anxiety Last Admin: 03/15/24 20:55 Dose: 25 mg Losartan Potassium (Losartan Potassium 25 Mg Tablet) 12.5 mg PO DAILY [facility]; Protocol Last Admin: 03/16/24 08:22 Dose: 12.5 mg Magnesium Hydroxide (Milk Of Magnesia 30 Ml Oral.Susp) 30 ml PO DAILY PRN PRN Reason: Constipation Prednisone (Prednisone 20 Mg Tablet) 40 mg PO DAILY [facility]; Taper Stop: 03/26/24 14:29 Last Admin: 03/16/24 08:21 Dose: 40 mg Sertraline HCl (Sertraline Hcl 100 Mg Tablet) 100 mg PO DAILY [facility] Last Admin: 03/16/24 08:21 Dose: 100 mg Trazodone HCl (Trazodone Hcl 50 Mg Tablet) 50 mg PO BEDTIME MRX1 PRN PRN Reason: Insomnia Last Admin: 03/15/24 20:56 Dose: 50 mg Allergies Allergies Allergy/AdvReac Type Severity Reaction Status Date / Time No Known Allergies Allergy Unverified 03/13/24 22:05 [No Known Allergies*] Assessment & Plan Assessment & Plan (1) Severe depression: Status: Acute Code(s): F32.2 - Major depressive disorder, single episode, severe without psychotic features (2) Alcohol use disorder: Status: Acute Code(s): F10.90 - Alcohol use, unspecified, uncomplicated Plan 03/15: add wellbutrin 150 mg daily to sertraline 100 mg daily for depression. continue CIWA with ativan per protocol for alcohol withdrawal. declines MAT for AUD. medical consult for reported gout flare. 03/16: DC CIWA and ativan as pt has yet to score for any and has been dry for at least 3 days. gout under control with prednisone. increase wellbutrin to 300 in 2 days. otherwise continue current mgmt. Reason for continued inpatient stay Substantial Risk for: inability to function and rapid decompensation Time Spent With Patient Time: Total time managing care of this patient today __25__ minutes.
[2024-03-16 20:00] VITALS: BP 101/60; PULSE 100; RESP 18; TEMP 36.6; O2SAT 97
[2024-03-16] MEDS: hydrOXYzine HCL 25 MG TABLET PO (20:42)
[2024-03-16] MEDS: traZODone HCL 50 MG TABLET PO (20:43)
[2024-03-16] MEDS: Albuterol Sulfate 90 MCG 8 GM INHALER 2 PUFF INHALE (20:48)
[2024-03-17 07:51] VITALS: BP 101/64; PULSE 81; RESP 18; TEMP 36.4; O2SAT 91
[2024-03-17] MEDS: Apixaban 5 MG TABLET PO ×2 (08:12→20:28)
[2024-03-17 08:13] VITALS: BP 101/64
[2024-03-17] MEDS: Losartan Potassium 25 MG TABLET 12.5 MG PO (08:13)
[2024-03-17] MEDS: Sertraline HCL 100 MG TABLET PO (08:13)
[2024-03-17] MEDS: predniSONE 20 MG TABLET 30 MG PO (08:14)
[2024-03-17] MEDS: Atorvastatin Calcium 40 MG TABLET PO (08:15)
[2024-03-17] MEDS: Folic Acid 1 MG TABLET PO (08:15)
[2024-03-17] MEDS: buPROPion HCl XL 150 MG TAB.ER.24H PO (08:15)
[2024-03-17] MEDS: Cyanocobalamin (Vitamin B-12) 1,000 MCG TABLET 1000 MCG PO (08:15)
[2024-03-17] MEDS: Albuterol Sulfate 90 MCG 8 GM INHALER 2 PUFF INHALE (09:53)
--- NOTE | 2024-03-17 13:20 | HO.PSYCHPN ---
Subjective Subjective Date of Service: 03/17/24 Reason For Visit: Severe depression Interim History: calm, cooperative, feeling well. would like to discharge next wednesday. walking better yesterday, feels his COPD is improved. c/o left arm and leg [id number] last night for about 30 minutes, something that has happened to him in the past, as long ago as 20-25 years, and which spontaneously resolved. recommended to avoid trazodone and use hydroxyzine tonight. per staff, feeling well, had traz last noc, slept 8 hours. Mental Status Exam Mental Status Exam Narrative: dressed in rich, adequately groomed. cooperative, no PMA/PMR. speech nml rate, amount, loudness, latency. flattened tone. thoughts linear and logical. affect constricted, normo-intense, non-labile. mood good. denies SI/SIBI/HI/AVH. Diagnostics Vital Signs (24Hr): Vital Signs - 24 hr 03/16/24 20:00 03/17/24 07:51 03/17/24 08:13 Temperature 97.8 F 97.6 F Pulse Rate 100 81 Respiratory Rate 18 18 Blood Pressure 101/60 101/64 101/64 Pulse Oximetry 97 91 L Oxygen Delivery Method Room Air Room Air BMI result Body Mass Index 23.4 Labs 03/15/24 13:44 03/15/24 08:01 Labs: Laboratory Results - last 48 hr 03/15/24 13:44 WBC 8.0 RBC 3.98 L Hgb 13.6 L Hct 40.5 L MCV 101.8 H MCH 34.2 H MCHC 33.6 RDW 13.2 Plt Count 140 L MPV 8.8 L Immature Gran % (Auto) 0.2 Neut % (Auto) 63.6 Lymph % (Auto) 21.3 [place] % (Auto) 12.3 H Eos % (Auto) 2.1 Baso % (Auto) 0.5 Lymph # (Auto) 1.7 [place] # (Auto) 1.0 Eos # (Auto) 0.2 Baso # (Auto) 0.0 Abs Immat Gran (auto) 0.02 Absolute Neuts (auto) 5.1 Absolute Nucleated RBC 0.000 Nucleated RBC % (auto) 0.0 Uric Acid 4.2 Medications Medications Current Medications Acetaminophen (Acetaminophen 325 Mg Tablet) 650 mg PO Q6H PRN PRN Reason: Headache/Pain Mild Scale (1-3) Al Hydroxide/Mg Hydroxide (Magnesium Hydrox/Alum Hydrox 30 Ml Oral.Susp) 30 ml PO Q6H PRN PRN Reason: Heartburn/Nausea Albuterol Sulfate (Albuterol Sulfate 90 Mcg 8 Gm Inhaler) 2 puff INHALE Q4H PRN PRN Reason: wheezing Last Admin: 03/17/24 09:53 Dose: 2 puff Apixaban (Apixaban 5 Mg Tablet) 5 mg PO BID [facility] Last Admin: 03/17/24 08:12 Dose: 5 mg Atorvastatin Calcium (Atorvastatin Calcium 40 Mg Tablet) 40 mg PO DAILY [facility] Last Admin: 03/17/24 08:15 Dose: 40 mg Bupropion HCl (Bupropion Hcl Xl 150 Mg Tab.Er.24h) 150 mg PO DAILY [facility] Stop: 03/19/24 08:59 Last Admin: 03/17/24 08:15 Dose: 150 mg Bupropion HCl (Bupropion Hcl Xl 300 Mg Tab.Er.24h) 300 mg PO DAILY [facility] Cyanocobalamin (Cyanocobalamin (Vitamin B-12) 1,000 Mcg Tablet) 1,000 mcg PO DAILY [facility] Last Admin: 03/17/24 08:15 Dose: 1,000 mcg Folic Acid (Folic Acid 1 Mg Tablet) 1 mg PO DAILY [facility] Last Admin: 03/17/24 08:15 Dose: 1 mg Hydroxyzine HCl (Hydroxyzine Hcl 50 Mg Tablet) 50 mg PO Q6H PRN PRN Reason: Anxiety or insomnia Losartan Potassium (Losartan Potassium 25 Mg Tablet) 12.5 mg PO DAILY [facility]; Protocol Last Admin: 03/17/24 08:13 Dose: 12.5 mg Magnesium Hydroxide (Milk Of Magnesia 30 Ml Oral.Susp) 30 ml PO DAILY PRN PRN Reason: Constipation Prednisone (Prednisone 20 Mg Tablet) 40 mg PO DAILY [facility]; Taper Stop: 03/26/24 14:29 Last Admin: 03/17/24 08:14 Dose: 40 mg Sertraline HCl (Sertraline Hcl 100 Mg Tablet) 100 mg PO DAILY [facility] Last Admin: 03/17/24 08:13 Dose: 100 mg Trazodone HCl (Trazodone Hcl 50 Mg Tablet) 50 mg PO BEDTIME MRX1 PRN PRN Reason: Insomnia Last Admin: 03/16/24 20:43 Dose: 50 mg Allergies Allergies Allergy/AdvReac Type Severity Reaction Status Date / Time No Known Allergies Allergy Unverified 03/13/24 22:05 [No Known Allergies*] Assessment & Plan Assessment & Plan (1) Severe depression: Status: Acute Code(s): F32.2 - Major depressive disorder, single episode, severe without psychotic features (2) Alcohol use disorder: Status: Acute Code(s): F10.90 - Alcohol use, unspecified, uncomplicated Plan 03/15: add wellbutrin 150 mg daily to sertraline 100 mg daily for depression. continue CIWA with ativan per protocol for alcohol withdrawal. declines MAT for AUD. medical consult for reported gout flare. 03/16: DC CIWA and ativan as pt has yet to score for any and has been dry for at least 3 days. gout under control with prednisone. increase wellbutrin to 300 in 2 days. otherwise continue current mgmt. 03/17: continuing to feel better in every sphere. continue current mgmt. increase wellbutrin to 300 mg in two days (order already entered). Reason for continued inpatient stay Substantial Risk for: inability to function and rapid decompensation Time Spent With Patient Time: Total time managing care of this patient today _25___ minutes.
[2024-03-17 19:57] VITALS: BP 90/60; PULSE 83; RESP 16; TEMP 36.6; O2SAT 94
[2024-03-17] MEDS: hydrOXYzine HCL 50 MG TABLET PO (20:28)
[2024-03-17] MEDS: traZODone HCL 50 MG TABLET PO ×2 (20:28→22:07)
[2024-03-17] MEDS: LORazepam 1 MG TABLET PO (22:07)
[2024-03-18 07:41] VITALS: BP 94/61; PULSE 84; RESP 14; TEMP 36.5; O2SAT 91
[2024-03-18 08:38] VITALS: BP 118/68; PULSE 81; RESP 16; O2SAT 93
[2024-03-18] MEDS: Albuterol Sulfate 90 MCG 8 GM INHALER 2 PUFF INHALE (08:40)
[2024-03-18] MEDS: predniSONE 20 MG TABLET 30 MG PO (08:42)
[2024-03-18 08:43] VITALS: BP 118/68
[2024-03-18] MEDS: Losartan Potassium 25 MG TABLET 12.5 MG PO (08:43)
[2024-03-18] MEDS: Sertraline HCL 100 MG TABLET PO (08:43)
[2024-03-18] MEDS: Folic Acid 1 MG TABLET PO (08:43)
[2024-03-18] MEDS: Atorvastatin Calcium 40 MG TABLET PO (08:43)
[2024-03-18] MEDS: buPROPion HCl XL 150 MG TAB.ER.24H PO (08:43)
[2024-03-18] MEDS: Cyanocobalamin (Vitamin B-12) 1,000 MCG TABLET 1000 MCG PO (08:43)
[2024-03-18] MEDS: Apixaban 5 MG TABLET PO ×2 (08:43→20:11)
--- NOTE | 2024-03-18 08:51 | HO.PSYCHPN ---
Subjective Subjective Date of Service: 03/18/24 Reason For Visit: Severe depression Interim History: calm, cooperative, feeling well. Says he had some restlessness in his legs last night and didn't sleep well because of that. He reports his depression is improving. Denies SI. Says he is becoming more ready for DC next week. Review of Systems Review of Systems Pertinent positives and negatives as stated in HPI Mental Status Exam Mental Status Exam Narrative: dressed in rich, adequately groomed. cooperative, no PMA/PMR. speech nml rate, amount, loudness, latency. flattened tone. thoughts linear and logical. affect constricted, normo-intense, non-labile. mood good. denies SI/SIBI/HI/AVH. Diagnostics Vital Signs (24Hr): Vital Signs - 24 hr 03/17/24 19:57 03/18/24 07:41 03/18/24 08:38 Temperature 97.9 F 97.7 F Pulse Rate 83 84 81 Respiratory Rate 16 14 16 Blood Pressure 90/60 94/61 118/68 Pulse Oximetry 94 91 L 93 Oxygen Delivery Method Room Air Room Air Room Air 03/18/24 08:43 Temperature Pulse Rate Respiratory Rate Blood Pressure 118/68 Pulse Oximetry Oxygen Delivery Method BMI result Body Mass Index 23.4 Labs 03/15/24 13:44 03/15/24 08:01 Medications Medications Current Medications Acetaminophen (Acetaminophen 325 Mg Tablet) 650 mg PO Q6H PRN PRN Reason: Headache/Pain Mild Scale (1-3) Al Hydroxide/Mg Hydroxide (Magnesium Hydrox/Alum Hydrox 30 Ml Oral.Susp) 30 ml PO Q6H PRN PRN Reason: Heartburn/Nausea Albuterol Sulfate (Albuterol Sulfate 90 Mcg 8 Gm Inhaler) 2 puff INHALE Q4H PRN PRN Reason: wheezing Last Admin: 03/18/24 08:40 Dose: 2 puff Apixaban (Apixaban 5 Mg Tablet) 5 mg PO BID [facility] Last Admin: 03/18/24 08:43 Dose: 5 mg Atorvastatin Calcium (Atorvastatin Calcium 40 Mg Tablet) 40 mg PO DAILY [facility] Last Admin: 03/18/24 08:43 Dose: 40 mg Bupropion HCl (Bupropion Hcl Xl 150 Mg Tab.Er.24h) 150 mg PO DAILY [facility] Stop: 03/19/24 08:59 Last Admin: 03/18/24 08:43 Dose: 150 mg Bupropion HCl (Bupropion Hcl Xl 300 Mg Tab.Er.24h) 300 mg PO DAILY [facility] Cyanocobalamin (Cyanocobalamin (Vitamin B-12) 1,000 Mcg Tablet) 1,000 mcg PO DAILY [facility] Last Admin: 03/18/24 08:43 Dose: 1,000 mcg Folic Acid (Folic Acid 1 Mg Tablet) 1 mg PO DAILY [facility] Last Admin: 03/18/24 08:43 Dose: 1 mg Hydroxyzine HCl (Hydroxyzine Hcl 50 Mg Tablet) 50 mg PO Q6H PRN PRN Reason: Anxiety or insomnia Last Admin: 03/17/24 20:28 Dose: 50 mg Lorazepam (Lorazepam 1 Mg Tablet) 1 mg PO Q4H PRN PRN Reason: tremors, shaking, anxiety Last Admin: 03/17/24 22:07 Dose: 1 mg Losartan Potassium (Losartan Potassium 25 Mg Tablet) 12.5 mg PO DAILY [facility]; Protocol Last Admin: 03/18/24 08:43 Dose: 12.5 mg Magnesium Hydroxide (Milk Of Magnesia 30 Ml Oral.Susp) 30 ml PO DAILY PRN PRN Reason: Constipation Prednisone (Prednisone 20 Mg Tablet) 40 mg PO DAILY [facility]; Taper Stop: 03/26/24 14:29 Last Admin: 03/18/24 08:42 Dose: 40 mg Sertraline HCl (Sertraline Hcl 100 Mg Tablet) 100 mg PO DAILY [facility] Last Admin: 03/18/24 08:43 Dose: 100 mg Trazodone HCl (Trazodone Hcl 50 Mg Tablet) 50 mg PO BEDTIME MRX1 PRN PRN Reason: Insomnia Last Admin: 03/17/24 22:07 Dose: 50 mg Allergies Allergies Allergy/AdvReac Type Severity Reaction Status Date / Time No Known Allergies Allergy Unverified 03/13/24 22:05 [No Known Allergies*] Assessment & Plan Assessment & Plan (1) Severe depression: Status: Acute Code(s): F32.2 - Major depressive disorder, single episode, severe without psychotic features (2) Alcohol use disorder: Status: Acute Code(s): F10.90 - Alcohol use, unspecified, uncomplicated Plan 03/15: add wellbutrin 150 mg daily to sertraline 100 mg daily for depression. continue CIWA with ativan per protocol for alcohol withdrawal. declines MAT for AUD. medical consult for reported gout flare. 03/16: DC CIWA and ativan as pt has yet to score for any and has been dry for at least 3 days. gout under control with prednisone. increase wellbutrin to 300 in 2 days. otherwise continue current mgmt. 03/17: continuing to feel better in every sphere. continue current mgmt. increase wellbutrin to 300 mg in two days (order already entered). 03/18: Continue current treatment plan. Reason for continued inpatient stay Substantial Risk for: inability to function and rapid decompensation Time Spent With Patient Time: Total time managing care of this patient today ____ minutes.
[2024-03-18 20:00] VITALS: BP 110/73; PULSE 94; RESP 18; TEMP 36.8; O2SAT 94
[2024-03-18] MEDS: traZODone HCL 50 MG TABLET PO (20:11)
[2024-03-18] MEDS: LORazepam 1 MG TABLET PO (20:11)
[2024-03-18] MEDS: hydrOXYzine HCL 50 MG TABLET PO (20:11)
[2024-03-19 07:35] VITALS: BP 100/66; PULSE 84; RESP 14; TEMP 36.5; O2SAT 94
[2024-03-19 08:34] VITALS: BP 123/79; PULSE 85; RESP 16; TEMP 36.7; O2SAT 94
[2024-03-19] MEDS: buPROPion HCl XL 300 MG TAB.ER.24H PO (08:35)
[2024-03-19] MEDS: Albuterol Sulfate 90 MCG 8 GM INHALER 2 PUFF INHALE (08:35)
[2024-03-19] MEDS: Apixaban 5 MG TABLET PO ×2 (08:35→20:59)
[2024-03-19 08:36] VITALS: BP 123/79
[2024-03-19] MEDS: Sertraline HCL 100 MG TABLET PO (08:36)
[2024-03-19] MEDS: predniSONE 20 MG TABLET 30 MG PO (08:36)
[2024-03-19] MEDS: Atorvastatin Calcium 40 MG TABLET PO (08:36)
[2024-03-19] MEDS: Losartan Potassium 25 MG TABLET 12.5 MG PO (08:36)
[2024-03-19] MEDS: Cyanocobalamin (Vitamin B-12) 1,000 MCG TABLET 1000 MCG PO (08:36)
[2024-03-19] MEDS: Folic Acid 1 MG TABLET PO (08:36)
--- NOTE | 2024-03-19 15:51 | P.PNPSI_ITS ---
Subjective Subjective Date of Service: 03/19/24 Reason For Visit: Severe depression Interim History: calm, cooperative, feeling well. Slept well last night and didn't have restlessness or jumpiness in his legs. He reports his depression is improving. He is pleasant with staff. Attending groups. Compliant with medications. Gout controlled. Denies SI. Review of Systems Review of Systems Pertinent positives and negatives as stated in HPI Mental Status Exam Mental Status Exam Narrative: dressed in rich, adequately groomed. cooperative, no PMA/PMR. speech nml rate, amount, loudness, latency. flattened tone. thoughts linear and logical. affect constricted, normo-intense, non-labile. mood good. denies SI/SIBI/HI/AVH. Diagnostics Vital Signs (24Hr): Vital Signs - 24 hr 03/18/24 20:00 03/19/24 07:35 03/19/24 08:34 Temperature 98.2 F 97.7 F 98.1 F Pulse Rate 94 84 85 Respiratory Rate 18 14 16 Blood Pressure 110/73 100/66 123/79 Pulse Oximetry 94 94 94 Oxygen Delivery Method Room Air Room Air Room Air 03/19/24 08:36 Temperature Pulse Rate Respiratory Rate Blood Pressure 123/79 Pulse Oximetry Oxygen Delivery Method BMI result Body Mass Index 23.4 Labs 03/15/24 13:44 03/15/24 08:01 Medications Medications Current Medications Acetaminophen (Acetaminophen 325 Mg Tablet) 650 mg PO Q6H PRN PRN Reason: Headache/Pain Mild Scale (1-3) Al Hydroxide/Mg Hydroxide (Magnesium Hydrox/Alum Hydrox 30 Ml Oral.Susp) 30 ml PO Q6H PRN PRN Reason: Heartburn/Nausea Albuterol Sulfate (Albuterol Sulfate 90 Mcg 8 Gm Inhaler) 2 puff INHALE Q4H PRN PRN Reason: wheezing Last Admin: 03/19/24 08:35 Dose: 2 puff Apixaban (Apixaban 5 Mg Tablet) 5 mg PO BID [facility] Last Admin: 03/19/24 08:35 Dose: 5 mg Atorvastatin Calcium (Atorvastatin Calcium 40 Mg Tablet) 40 mg PO DAILY [facility] Last Admin: 03/19/24 08:36 Dose: 40 mg Bupropion HCl (Bupropion Hcl Xl 300 Mg Tab.Er.24h) 300 mg PO DAILY [facility] Last Admin: 03/19/24 08:35 Dose: 300 mg Cyanocobalamin (Cyanocobalamin (Vitamin B-12) 1,000 Mcg Tablet) 1,000 mcg PO DAILY [facility] Last Admin: 03/19/24 08:36 Dose: 1,000 mcg Folic Acid (Folic Acid 1 Mg Tablet) 1 mg PO DAILY [facility] Last Admin: 03/19/24 08:36 Dose: 1 mg Hydroxyzine HCl (Hydroxyzine Hcl 50 Mg Tablet) 50 mg PO Q6H PRN PRN Reason: Anxiety or insomnia Last Admin: 03/18/24 20:11 Dose: 50 mg Lorazepam (Lorazepam 1 Mg Tablet) 1 mg PO Q4H PRN PRN Reason: tremors, shaking, anxiety Last Admin: 03/18/24 20:11 Dose: 1 mg Losartan Potassium (Losartan Potassium 25 Mg Tablet) 12.5 mg PO DAILY [facility]; Protocol Last Admin: 03/19/24 08:36 Dose: 12.5 mg Magnesium Hydroxide (Milk Of Magnesia 30 Ml Oral.Susp) 30 ml PO DAILY PRN PRN Reason: Constipation Prednisone (Prednisone 20 Mg Tablet) 40 mg PO DAILY [facility]; Taper Stop: 03/26/24 14:29 Last Admin: 03/19/24 08:36 Dose: 40 mg Sertraline HCl (Sertraline Hcl 100 Mg Tablet) 100 mg PO DAILY [facility] Last Admin: 03/19/24 08:36 Dose: 100 mg Trazodone HCl (Trazodone Hcl 50 Mg Tablet) 50 mg PO BEDTIME MRX1 PRN PRN Reason: Insomnia Last Admin: 03/18/24 20:11 Dose: 50 mg Allergies Allergies Allergy/AdvReac Type Severity Reaction Status Date / Time No Known Allergies Allergy Unverified 03/13/24 22:05 [No Known Allergies*] Assessment & Plan Assessment & Plan (1) Severe depression: Status: Acute Code(s): F32.2 - Major depressive disorder, single episode, severe without psychotic features (2) Alcohol use disorder: Status: Acute Code(s): F10.90 - Alcohol use, unspecified, uncomplicated Plan 03/15: add wellbutrin 150 mg daily to sertraline 100 mg daily for depression. continue CIWA with ativan per protocol for alcohol withdrawal. declines MAT for AUD. medical consult for reported gout flare. 03/16: DC CIWA and ativan as pt has yet to score for any and has been dry for at least 3 days. gout under control with prednisone. increase wellbutrin to 300 in 2 days. otherwise continue current mgmt. 03/17: continuing to feel better in every sphere. continue current mgmt. increase wellbutrin to 300 mg in two days (order already entered). 03/18: Continue current treatment plan. 03/19: continue current management and treatment plan. Reason for continued inpatient stay Substantial Risk for: harm to self, rapid decompensation and med/psych decompensation Time Spent With Patient Time: Total time managing care of this patient today ____ minutes.
[2024-03-19 20:00] VITALS: BP 116/64; PULSE 83; RESP 16; TEMP 36.6; O2SAT 96
[2024-03-19] MEDS: traZODone HCL 50 MG TABLET PO (20:59)
[2024-03-19] MEDS: LORazepam 1 MG TABLET PO (20:59)
[2024-03-19] MEDS: hydrOXYzine HCL 50 MG TABLET PO (20:59)
[2024-03-20 07:15] VITALS: BP 118/75; PULSE 84; RESP 14; TEMP 36.6; O2SAT 93
[2024-03-20] MEDS: Losartan Potassium 25 MG TABLET 12.5 MG PO (08:27)
[2024-03-20] MEDS: Apixaban 5 MG TABLET PO ×2 (08:27→21:05)
[2024-03-20] MEDS: Atorvastatin Calcium 40 MG TABLET PO (08:27)
[2024-03-20] MEDS: predniSONE 20 MG TABLET 30 MG PO (08:28)
[2024-03-20] MEDS: Cyanocobalamin (Vitamin B-12) 1,000 MCG TABLET 1000 MCG PO (08:28)
[2024-03-20] MEDS: Folic Acid 1 MG TABLET PO (08:29)
[2024-03-20] MEDS: Sertraline HCL 100 MG TABLET PO (08:29)
[2024-03-20] MEDS: buPROPion HCl XL 300 MG TAB.ER.24H PO (08:29)
[2024-03-20] MEDS: Magnesium Hydrox/Alum Hydrox 30 ML ORAL.SUSP PO (10:22)
--- NOTE | 2024-03-20 10:46 | HO.PSYCHPN ---
Subjective Subjective Date of Service: 03/20/24 Reason For Visit: Severe depression Interim History: calm, cooperative, feeling well. Unchanged from yesterday. Continued improvement in mood. Seen in common area interacting and appears in a good mood. Slept well last night and didn't have restlessness or jumpiness in his legs. He is pleasant with staff. Attending groups. Compliant with medications. Gout controlled. Denies SI. Review of Systems Review of Systems Pertinent positives and negatives as stated in HPI Mental Status Exam Mental Status Exam Narrative: dressed in rich, adequately groomed. cooperative, no PMA/PMR. speech nml rate, amount, loudness, latency. flattened tone. thoughts linear and logical. affect constricted, normo-intense, non-labile. mood good. denies SI/SIBI/HI/AVH. Diagnostics Vital Signs (24Hr): Vital Signs - 24 hr 03/19/24 20:00 03/20/24 07:15 Temperature 97.9 F 97.9 F Pulse Rate 83 84 Respiratory Rate 16 14 Blood Pressure 116/64 118/75 Pulse Oximetry 96 93 Oxygen Delivery Method Room Air Room Air BMI result Body Mass Index 23.4 Labs 03/15/24 13:44 03/15/24 08:01 Medications Medications Current Medications Acetaminophen (Acetaminophen 325 Mg Tablet) 650 mg PO Q6H PRN PRN Reason: Headache/Pain Mild Scale (1-3) Al Hydroxide/Mg Hydroxide (Magnesium Hydrox/Alum Hydrox 30 Ml Oral.Susp) 30 ml PO Q6H PRN PRN Reason: Heartburn/Nausea Last Admin: 03/20/24 10:22 Dose: 30 ml Albuterol Sulfate (Albuterol Sulfate 90 Mcg 8 Gm Inhaler) 2 puff INHALE Q4H PRN PRN Reason: wheezing Last Admin: 03/19/24 08:35 Dose: 2 puff Apixaban (Apixaban 5 Mg Tablet) 5 mg PO BID [facility] Last Admin: 03/20/24 08:27 Dose: 5 mg Atorvastatin Calcium (Atorvastatin Calcium 40 Mg Tablet) 40 mg PO DAILY [facility] Last Admin: 03/20/24 08:27 Dose: 40 mg Bupropion HCl (Bupropion Hcl Xl 300 Mg Tab.Er.24h) 300 mg PO DAILY [facility] Last Admin: 03/20/24 08:29 Dose: 300 mg Cyanocobalamin (Cyanocobalamin (Vitamin B-12) 1,000 Mcg Tablet) 1,000 mcg PO DAILY [facility] Last Admin: 03/20/24 08:28 Dose: 1,000 mcg Folic Acid (Folic Acid 1 Mg Tablet) 1 mg PO DAILY [facility] Last Admin: 03/20/24 08:29 Dose: 1 mg Hydroxyzine HCl (Hydroxyzine Hcl 50 Mg Tablet) 50 mg PO Q6H PRN PRN Reason: Anxiety or insomnia Last Admin: 03/19/24 20:59 Dose: 50 mg Lorazepam (Lorazepam 1 Mg Tablet) 1 mg PO Q4H PRN PRN Reason: tremors, shaking, anxiety Last Admin: 03/19/24 20:59 Dose: 1 mg Losartan Potassium (Losartan Potassium 25 Mg Tablet) 12.5 mg PO DAILY [facility]; Protocol Last Admin: 03/20/24 08:27 Dose: 12.5 mg Magnesium Hydroxide (Milk Of Magnesia 30 Ml Oral.Susp) 30 ml PO DAILY PRN PRN Reason: Constipation Prednisone (Prednisone 20 Mg Tablet) 40 mg PO DAILY [facility]; Taper Stop: 03/26/24 14:29 Last Admin: 03/20/24 08:28 Dose: 40 mg Sertraline HCl (Sertraline Hcl 100 Mg Tablet) 100 mg PO DAILY [facility] Last Admin: 03/20/24 08:29 Dose: 100 mg Trazodone HCl (Trazodone Hcl 50 Mg Tablet) 50 mg PO BEDTIME MRX1 PRN PRN Reason: Insomnia Last Admin: 03/19/24 20:59 Dose: 50 mg Allergies Allergies Allergy/AdvReac Type Severity Reaction Status Date / Time No Known Allergies Allergy Unverified 03/13/24 22:05 [No Known Allergies*] Assessment & Plan Assessment & Plan (1) Severe depression: Status: Acute Code(s): F32.2 - Major depressive disorder, single episode, severe without psychotic features (2) Alcohol use disorder: Status: Acute Code(s): F10.90 - Alcohol use, unspecified, uncomplicated Plan 03/15: add wellbutrin 150 mg daily to sertraline 100 mg daily for depression. continue CIWA with ativan per protocol for alcohol withdrawal. declines MAT for AUD. medical consult for reported gout flare. 03/16: DC CIWA and ativan as pt has yet to score for any and has been dry for at least 3 days. gout under control with prednisone. increase wellbutrin to 300 in 2 days. otherwise continue current mgmt. 03/17: continuing to feel better in every sphere. continue current mgmt. increase wellbutrin to 300 mg in two days (order already entered). 03/18: Continue current treatment plan. 03/19: continue current management and treatment plan. 03/20: continue current management and treatment plan. Reason for continued inpatient stay Substantial Risk for: harm to self, inability to function and rapid decompensation Time Spent With Patient Time: Total time managing care of this patient today ____ minutes.
[2024-03-20 21:00] VITALS: BP 114/61; PULSE 87; RESP 16; TEMP 36.6; O2SAT 96
[2024-03-20] MEDS: hydrOXYzine HCL 50 MG TABLET PO (21:05)
[2024-03-20] MEDS: LORazepam 1 MG TABLET PO (21:05)
[2024-03-20] MEDS: traZODone HCL 50 MG TABLET PO (21:05)
[2024-03-21 07:15] VITALS: BP 120/64; PULSE 97; RESP 20; TEMP 36.4; O2SAT 95
[2024-03-21 08:32] VITALS: BP 120/64
[2024-03-21] MEDS: buPROPion HCl XL 300 MG TAB.ER.24H PO (08:32)
[2024-03-21] MEDS: Losartan Potassium 25 MG TABLET 12.5 MG PO (08:32)
[2024-03-21] MEDS: Sertraline HCL 100 MG TABLET PO (08:32)
[2024-03-21] MEDS: Cyanocobalamin (Vitamin B-12) 1,000 MCG TABLET 1000 MCG PO (08:32)
[2024-03-21] MEDS: predniSONE 20 MG TABLET 30 MG PO (08:33)
[2024-03-21] MEDS: Apixaban 5 MG TABLET PO ×2 (08:33→20:50)
[2024-03-21] MEDS: Folic Acid 1 MG TABLET PO (08:33)
[2024-03-21] MEDS: Atorvastatin Calcium 40 MG TABLET PO (08:33)
[2024-03-21] MEDS: Albuterol Sulfate 90 MCG 8 GM INHALER 2 PUFF INHALE (08:46)
--- NOTE | 2024-03-21 12:40 | P.DS_ITS ---
DS: Providers Provider Date of Service: 03/21/24 Date of admission: 03/14/24 10:20 Primary care physician: Unknown Physician Consults: 03/14/24 14:07 Addiction Medicine Routine Consulting Provider: Addiction Covering Reason for consultation: Hx of daily alcohol use 03/15/24 12:31 Consult to Hospitalist Routine Comment: Consulting Provider: Hospitalist Reason For Exam: h/o gout. right ankle gouty pain. DS: Diagnosis Discharge Diagnosis (1) Severe depression: Status: Acute (2) Alcohol use disorder: Status: Acute DS: Medications Discharge Medications Home Medications: Home Medications ?Medication ?Instructions ?Recorded ?Confirmed albuterol sulfate 90 mcg/actuation 2 puff inhalation Q4H PRN wheezing 03/13/24 03/13/24 aerosol inhaler apixaban 5 mg tablet (Eliquis) 5 mg PO BID 03/13/24 03/13/24 atorvastatin 40 mg tablet 40 mg PO DAILY 03/13/24 03/13/24 cyanocobalamin (vitamin B-12) 1,000 mcg PO DAILY 03/13/24 03/13/24 1,000 mcg tablet folic acid 1 mg tablet 1 mg PO DAILY 03/13/24 03/13/24 losartan 25 mg tablet 12.5 mg PO DAILY 03/13/24 03/13/24 sertraline 100 mg tablet 100 mg PO DAILY 03/13/24 03/13/24 Previous Rx's ?Medication ?Instructions ?Recorded bupropion HCl 300 mg 24 hr tablet, 300 mg PO DAILY 30 days #30 tabs 03/21/24 extended release prednisone 10 mg tablet 10 mg PO DIRECTED 4 days #6 tabs 03/21/24 Mental Status Exam Mental Status Exam Narrative: dressed in rich, adequately groomed. cooperative, no PMA/PMR. speech nml rate, amount, loudness, latency. flattened tone. thoughts linear and logical. affect flexible, normo-intense, non-labile. mood pretty good. denies SI/SIBI/HI/AVH. Data Data Completed and Pending Completed studies during hospitalization [Text1]: 03/15/24 03/15/24 08:01 13:44 WBC 8.0 RBC 3.98 L Hgb 13.6 L Hct 40.5 L MCV 101.8 H MCH 34.2 H MCHC 33.6 RDW 13.2 Plt Count 140 L MPV 8.8 L Immature Gran % (Auto) 0.2 Neut % (Auto) 63.6 Lymph % (Auto) 21.3 Hardeman % (Auto) 12.3 H Eos % (Auto) 2.1 Baso % (Auto) 0.5 Lymph # (Auto) 1.7 Hardeman # (Auto) 1.0 Eos # (Auto) 0.2 Baso # (Auto) 0.0 Abs Immat Gran (auto) 0.02 Absolute Neuts (auto) 5.1 Absolute Nucleated RBC 0.000 Nucleated RBC % (auto) 0.0 Sodium 140 Potassium 3.6 Chloride 106 Carbon Dioxide 25 Anion Gap 13 BUN 7 L Creatinine 0.76 Estim Creat Clear Calc 88.7 Estimated GFR > 60 Fasting Glucose 98 Estimat Average Glucose 100 Hemoglobin A1c % 5.1 Uric Acid 4.2 Calcium 8.6 Magnesium 1.8 Total Bilirubin 0.5 AST 28 ALT 22 Alkaline Phosphatase 70 Total Protein 5.4 L Albumin 2.9 L Triglycerides 56 Cholesterol 115 LDL Cholesterol, Calc 35 HDL Cholesterol 69 Vitamin B12 817 Folate 10.1 TSH 2.12 Free T4 0.91 DS: Summary Hospital Course Hospital Course: per 03/15 admission note: per [facility] crisis eval, pt called emergency number and police brought pt to [facility] offices. per [facility] eval, pt c/o depression with SI, but said, i could never do it. he was weepy and indicated he needed help but was unable to elucidate exactly what kind. he identified several psychosocial stressors: [facility], or not knowing what to do with himself anymore; worsening health conditions; continuing to be preoccupied with his divorce of 20 years ago. he reported alcohol abuse as a current coping strategy, drinking 75 oz of beer between 3-6 and then going to sleep. he reportedly has not taken his medications for the past week as well. on interview with MD, pt is calm and cooperative. he denies any ROWE, sweats, tremors, n/v/d. he does report anxiety. per staff software engineer, scored 1 and 0 overnight on CIWA. complete history is taken, next steps discussed. pt looking for anti-depressant augmentation - he has been taking sertaline 100 mg daily for quite some time. R/B of wellbutrin discussed, including Sz, and pt agrees to trial. will start 150 mg daily as of tomorrow. discussion held re EMILIANA for AUD, pt declines any such approach, saying he tried it long ago and all it did was remind him that he wasn't drinking and made him crave even more. also c/o right ankle pain, reporting h/o gout, saying the present pain seems to be the same. agreed to hospitalist consult for presumed gout. pt is interested in getting back into mental health treatment and is eager for referrals for therapy and psychiatry. 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 2 adult sons, one from whom he is estranged. of 29 years him in the early . close with his brother, with whom he lives. Substance History: tobacco - denies use aside from lapse the past couple of weeks. alcohol - daily 72 oz beer until day of admission. h/o detox and rehab. cannabis - denies denies the use of other drugs or recreational substances. Trauma History: denies Precis: 03/15: add wellbutrin 150 mg daily to sertraline 100 mg daily for depression. continue CIWA with ativan per protocol for alcohol withdrawal. declines MAT for AUD. medical consult for reported gout flare. 03/16: DC CIWA and ativan as pt has yet to score for any and has been dry for at least 3 days. gout under control with prednisone. increase wellbutrin to 300 in 2 days. otherwise continue current mgmt. 03/17: continuing to feel better in every sphere. continue current mgmt. increase wellbutrin to 300 mg in two days (order already entered). 03/18: Continue current treatment plan. 03/19: continue current management and treatment plan. 03/20: continue current management and treatment plan. 03/21: stable. meds reviewed, reconciled, prescribed. 03/22: stable, no events overnight. discharged as per plan. Time Spent with Patient Time attestation: Total time managing care of this patient today _35___ minutes. Discharge Plan Discharge Anticipated Discharge Date/Time: 03/22/24 11:30 Patient Disposition: Home, Self-Care Discharge Diagnosis: Depressive Disorder NOS Alcohol Use Disorder Referrals: Silvia Daugherty (Therapy) [Other] - 03/29/24 11:00 am (IN OFFICE APPOINTMENT) Juana Burrows (Psychiatry) [Other] - 04/11/24 9:00 am (TELEHEALTH APPOINTMENT -If you are not comfortable with telehealth appointments, you may go to the office for this appointment. However, please note that the location is a different [facility] location than where your therapy appointment will take place.) Physician,Unknown J [Primary Care Provider] - 1 Week (PCP: [facility], Dr. Juan, Follow-up appointment: April 06, 1:30pm) Discharge Medications: New bupropion HCl 300 mg Tablet Extended Release 24 Hr 300 mg PO DAILY 30 Days Qty: 30 0RF prednisone 10 mg tablet 10 mg PO DIRECTED 4 Days Qty: 6 0RF Rx Instructions: see taper instructions: 2 tabs daily for 2 days, then 1 tab daily for 2 days, then stop. Continued atorvastatin 40 mg tablet 40 mg PO DAILY sertraline 100 mg tablet 100 mg PO DAILY cyanocobalamin (vitamin B-12) 1,000 mcg tablet 1,000 mcg PO DAILY losartan 25 mg tablet 12.5 mg PO DAILY folic acid 1 mg tablet 1 mg PO DAILY albuterol sulfate 90 mcg/actuation HFA aerosol inhaler 2 puff inhalation Q4H PRN (Reason: wheezing) Eliquis 5 mg tablet 5 mg PO BID Discharge Orders: Discharge Order (Routine); Ordered 03/22/24 Ordered By: Liu Bedoya Diet: Advance to usual diet Activity on Discharge: As tolerated Stand Alone Forms: Patient Portal Discharge page, Community Support Print Language: Maori Care Plan Goals: remain safe and stable in the outpatient treatment setting Health Concerns: none Plan of Treatment: take medications as prescribed, attend appointments as scheduled Assessment: not at imminent risk of harm to self or others Discharge Date/Time: 03/22/24 11:30
[2024-03-21 20:00] VITALS: BP 95/60; PULSE 86; RESP 18; TEMP 36.8; O2SAT 97
[2024-03-21] MEDS: traZODone HCL 50 MG TABLET PO (20:53)
[2024-03-22 07:10] VITALS: BP 115/69; PULSE 78; RESP 24; TEMP 36.9; O2SAT 95
[2024-03-22 08:08] VITALS: BP 119/72; PULSE 81; RESP 16; O2SAT 96
[2024-03-22 08:12] VITALS: BP 119/72
[2024-03-22] MEDS: Sertraline HCL 100 MG TABLET PO (08:12)
[2024-03-22] MEDS: predniSONE 20 MG TABLET 30 MG PO (08:12)
[2024-03-22] MEDS: Losartan Potassium 25 MG TABLET 12.5 MG PO (08:12)
[2024-03-22] MEDS: Apixaban 5 MG TABLET PO (08:12)
[2024-03-22] MEDS: Atorvastatin Calcium 40 MG TABLET PO (08:12)
[2024-03-22] MEDS: buPROPion HCl XL 300 MG TAB.ER.24H PO (08:12)
[2024-03-22] MEDS: Folic Acid 1 MG TABLET PO (08:13)
[2024-03-22] MEDS: Cyanocobalamin (Vitamin B-12) 1,000 MCG TABLET 1000 MCG PO (08:13)
--- NOTE | 2024-03-22 08:41 | PC.NURSE ---
[facility]
[2024-03-22] MEDS: hydrOXYzine HCL 50 MG TABLET PO (10:15)
== END 2024-03-22 11:30 | disposition home or self-care (01) | DRG 885 ==
LOC: HO.ED 03-14 06:43 → HO.PADLT16 03-14 10:49
PROVIDERS: Physician Assistant; Admitting Provider Psychiatry & Neurology Psychiatry; Emergency Provider Student in an Organized Health Care Education/Training Program; Visit Provider Psychiatry & Neurology Psychiatry
DX: F32.2 Major depressive disorder, single episode, severe without psychotic features (principal); R45.851 Suicidal ideations; J44.9 Chronic obstructive pulmonary disease, unspecified; I10 Essential (primary) hypertension; F10.90 Alcohol use, unspecified, uncomplicated; F17.210 Nicotine dependence, cigarettes, uncomplicated; Y90.4 Blood alcohol level of 80-99 mg/100 ml; M10.9 Gout, unspecified; Z71.6 Tobacco abuse counseling; Z79.01 Long term (current) use of anticoagulants; Z79.899 Other long term (current) drug therapy
CPT/HCPCS: 36415; 80053; 80061; 80307; 81001; 82607; 82746; 83036; 83735; 84439; 84443; 84550; 85025; 85610; 93005; 99285

== ENCOUNTER → 2024-03-13 22:23 | Outpatient (BNV) | payer MEDICARE, SELFPAY | PROVIDERS: Emergency Provider Student in an Organized Health Care Education/Training Program; Visit Provider Internal Medicine Cardiovascular Disease | DX: R94.31 Abnormal electrocardiogram [ECG] [EKG] (principal) | CPT/HCPCS: 93010 ==

== ENCOUNTER → 2024-03-14 10:20 | Outpatient (BNV) | payer MEDICARE, SELFPAY | PROVIDERS: Admitting Provider Psychiatry & Neurology Psychiatry; Emergency Provider Student in an Organized Health Care Education/Training Program; Visit Provider Psychiatry & Neurology Psychiatry | DX: F32.2 Major depressive disorder, single episode, severe without psychotic features (principal); F10.90 Alcohol use, unspecified, uncomplicated | CPT/HCPCS: 90792; 99231; 99232; 99239 ==